=== PATIENT | female | born 1960 | race Hispanic/Latino ===

== ENCOUNTER 2018-03-23 20:08 | Emergency (ER) | payer BC, SELFPAY ==
[2018-03-23] MEDS ORDERED: ACETAMINOPHEN-CODEINE ELIXIR 5 ML UDCUP ONE (20:28)
[2018-03-23 21:55] LABS: APPEARANCE,URINE Clear (CLEAR); BILIRUBIN,URINE Negative (NEGATIVE); COLOR,URINE Yellow (YELLOW); GLUCOSE, URINE (UA) Negative (NEGATIVE); KETONES,URINE Negative (NEGATIVE); LEUKOCYTE ESTERASE ,URINE Trace (NEGATIVE); NITRATE,URINE Negative (NEGATIVE); OCCULT BLOOD,URINE Negative (NEGATIVE); PROTEIN,URINE Negative (NEGATIVE); UROBILINOGEN,URINE 0.2 mg/dL (0.2-1.0)
[2018-03-23 22:02] LABS: BACTERIA,URINE Rare /HPF (None Seen); RBC,URINE 0-1 /HPF (0-1)
[2018-03-23 22:03] LABS: SQUAMOUS EPITHELIAL CELL,UR Rare /HPF (0-2)
== END 2018-03-23 21:48 | disposition home or self-care (01) ==
LOC: EDH 20:08
DX: S50.01XA Contusion of right elbow, initial encounter (principal); S09.8XXA Other specified injuries of head, initial encounter; E07.9 Disorder of thyroid, unspecified; F32.9 Major depressive disorder, single episode, unspecified; E78.5 Hyperlipidemia, unspecified; I10 Essential (primary) hypertension; Z79.899 Other long term (current) drug therapy; W18.39XA Other fall on same level, initial encounter; Y93.89 Activity, other specified; Y92.89 Other specified places as the place of occurrence of the external cause; Y99.8 Other external cause status
CPT/HCPCS: 70450; 73090; 81001

== ENCOUNTER 2022-07-10 05:47 | Emergency (ER) | payer OTHER, BC ==
[~2022-07-10] VITALS: Ht 165.1 cm; Wt 79.4 kg
[2022-07-10 06:40] VITALS: BP 163/100
== END 2022-07-10 06:55 | disposition home or self-care (01) ==
LOC: EDH 05:47
DX: S93.401A Sprain of unspecified ligament of right ankle, initial encounter (principal); M79.605 Pain in left leg; V43.52XA Car driver injured in collision with other type car in traffic accident, initial encounter; X58.XXXA Exposure to other specified factors, initial encounter; Y93.89 Activity, other specified; Y92.89 Other specified places as the place of occurrence of the external cause; Y99.8 Other external cause status
CPT/HCPCS: 73610